=== PATIENT | female | born 1990 | race Caucasian/White ===

== ENCOUNTER 2023-03-02 11:00 | Emergency (ER) | payer OTHER, BC ==
[~2023-03-02] VITALS: Ht 172.7 cm; Wt 82.1 kg
[2023-03-02 11:43] VITALS: BP 128/78
== END 2023-03-02 11:44 | disposition home or self-care (01) ==
LOC: ED 11:00
DX: M79.642 Pain in left hand (principal); Z88.5 Allergy status to narcotic agent
CPT/HCPCS: 99283